=== PATIENT | female | born 1975 | race Asian ===

== ENCOUNTER 2022-01-16 16:28 | Outpatient (REF) | payer OTHER, SELFPAY ==
[2022-01-16 20:11] LABS: Abs Immature Grans 0.03 10^3/uL (0.0-0.06); Absolute Eosinophil Count 0.22 10^3/uL (0.0-0.7); Absolute Lymphocyte Count 3.56 10^3/uL (1.2-3.4); Absolute Monocyte Count 0.51 10^3/uL (0.1-0.8); Absolute Neutrophil Count 4.68 10^3/uL (1.2-6.7); Basophils % 1.1; Eosinophils % 2.4; HCT 28.7 % (36.0-46.0); HGB 8.4 g/dL (11.2-15.7); Immature Grans % 0.3; Lymphocytes % 39.1; MCH 18.2 pg (27.0-33.0); MCHC 29.3 % (32.0-36.0); MCV 62 fL (80-95); Monocytes % 5.6; Neutrophils % 51.5; RBC 4.62 10^6/uL (3.93-5.22); RDW 19.1 % (11.7-14.6); RDW-SD 40.8 fL
[2022-01-16 20:42] LABS: Platelet Count 398 10^3/uL (130-400)
[2022-01-16 20:43] LABS: Anisocytosis 3+; Diff Comment RBC Morph Reviewed; Hypochromasia 3+; Microcytosis 3+
[2022-01-16 20:45] LABS: ALT 37 U/L (14-59); AST 28 U/L (15-37); Albumin 3.7 g/dL (3.4-5.0); Alkaline Phosphatase 68 U/L (46-116); Anion Gap 9.4 mmol/L (3-11); BUN 18 mg/dL (7-18); Bilirubin, Total 0.2 mg/dL (0.2-1.0); CO2 25.6 mmol/L (21.0-32.0); CREATININE 0.6 mg/dL (0.55-1.02); Calcium 8.9 mg/dL (8.5-10.1); Chloride 103 mmol/L (98-107); Estimated GFR 110.65 (mL/min/1.73m2); Glucose 93 mg/dL (74-106); Potassium 3.9 mmol/L (3.5-5.1); Sodium 138 mmol/L (136-145); TSH (W/Ref FT4) 0.68 uIU/mL (0.36-3.74); Total Protein 8.1 g/dL (6.4-8.2)
== END 2022-01-16 16:29 | disposition home or self-care (01) ==
LOC: NCHCN 16:28
PROVIDERS: Visit Provider Nurse Practitioner Family
DX: E03.0 Congenital hypothyroidism with diffuse goiter (principal); J30.2 Other seasonal allergic rhinitis; G47.20 Circadian rhythm sleep disorder, unspecified type; Z13.220 Encounter for screening for lipoid disorders; Z71.89 Other specified counseling
CPT/HCPCS: 80053; 84443; 85025

== ENCOUNTER → 2022-03-06 01:52 | Outpatient (CLI) | payer OTHER, SELFPAY ==
--- NOTE | 2022-03-06 15:15 | DI.MAMMO_ITS ---
Exam(s) MAMMO SCREENING EXAM: MAMMO SCREENING CLINICAL HISTORY: SCREENING, Z12.31 TECHNIQUE: Bilateral full field digital CC and MLO mammographic images were obtained with 3D tomosyn thesis and utilizing computer aided detection (CAD). COMPARISON: There are none available for comparison. FINDINGS: Masses/Architectural Distortion: There are several well-circumscribed nodules in the upper outer quad rant of the left breast. One has a reniform shape suggesting a lymph node. No suspicious masses or areas of architectural distortion are appreciated. Microcalcifications: No suspicious pleomorphic-type are seen. Skin Thickening/Nipple Retraction: None. IMPRESSION: 1. Well-circumscribed nodules in the upper outer quadrant of the left breast. 2. A limited left breast ultrasound is recommended for further evaluation. BI-RADS Category 0 - Assessment Incomplete: Need additional imaging evaluation Breast Density - Category B - Scattered areas of fibroglandular density Breast density category C or D implies that the patient has dense breast tissue. Dense breast tissue is very common and is not abnormal but dense breast tissue can make it harder to find cancer on a ma mmogram. Also, dense breast tissue may increase their breast cancer risk. This information about the result of the mammogram report was provided to the patient to raise their awareness. Use this report when you speak with the patient about their risks for breast cancer, which includes their family hist ory. At that time, you may recommend for more screening tests (Ultrasound or MRI) as they might be us eful based on their risk. A negative radiographic report should not delay biopsy if a dominant or clinically suspicious mass is present. Up to ten percent of cancers are not identified on mammography. A negative report may reinforce clinical impression. Adenosis and dense breasts may obscure an underlying neoplasm. False positive reports average 6 to 10%. Patient will receive a letter notifying them of these results.
== END ==
PROVIDERS: Visit Provider Nurse Practitioner Family
DX: Z12.31 Encounter for screening mammogram for malignant neoplasm of breast (principal); R92.8 Other abnormal and inconclusive findings on diagnostic imaging of breast
CPT/HCPCS: 77063; 77067

== ENCOUNTER 2022-03-06 18:44 | Outpatient (REF) | payer OTHER, SELFPAY ==
[2022-03-06 20:15] LABS: Iron 30 ug/dL (50-170); Total Iron Binding Capacity 399 ug/dL (250-450); Transferrin Sat 8 % (15-50)
[2022-03-06 20:28] LABS: Ferritin 51 ng/mL (8-252)
== END 2022-03-06 18:45 | disposition home or self-care (01) ==
LOC: NCHCN 18:44
PROVIDERS: Visit Provider Nurse Practitioner Family
DX: D50.9 Iron deficiency anemia, unspecified (principal)
CPT/HCPCS: 82728; 83540; 83550